=== PATIENT | female | born 1990 | race Caucasian/White ===

== ENCOUNTER 2018-11-15 06:56 | Emergency (ER) | payer SELFPAY ==
[2018-11-15 06:58] VITALS: BP 153/87; PULSE 84; RESP 16; TEMP 36.9; O2SAT 98; BMI 46.0
--- NOTE | 2018-11-15 07:16 | ED.VISSUMM ---
- ER Visit Summary Date of Service: 11/15/18 Chief Complaint: Dental pain History of Present Illness: The patient is a 28 F with several day history of right upper dental pain. She states her wisdom tooth is coming in and her second molar is broken. She has pain throughout the entire right side of her face. She had nausea and dry heaves this morning. She been taking Aleve without improvement. Physical Examination: Vital signs gross unremarkable. Patient sitting upright in bed no acute distress. Head neck examination reveals no facial edema or erythema. Right tympanic membrane is clear. Intraoral examination reveals right second maxillary molar to be broken with mild surrounding gum edema. Posterior pharynx is unremarkable. She is tolerating secretions and has a strong voice. Test Results: [] Emergency Department Course and Treatment: Patient did drive herself to the ER. She will be given Pen-Vee K and Zofran here. She be given prescription for 10 tabs of [place], Zofran, Pen-Vee K. She will continue Aleve. She is given a dental referral list. Treatment Plan: [] Disposition: Discharge Impression: Odontalgia This note was generated with [email or web address] dictation software. It may contain incorrect words, spelling, and punctuation that were not noted in review of the chart prior to signing ED Disposition - Plan for ED Patient: Referrals: Care Physician,No Primary [Primary Care Provider] -
--- NOTE | 2018-11-15 07:18 | ED.DEP ---
ED Disposition - Plan for ED Patient: Disposition: Home or Assisted Living Instructions: ED Tooth Pain Prescriptions: Hydrocodone Bitart/Apap 5-325 [[place] 5MG-325MG] 1 tablet PO Q6H PRN PRN 3 Days #10 tablet PRN Reason: Pain Ondansetron [Zofran Odt] 4 mg PO Q8H PRN PRN #10 tablet PRN Reason: Nausea Penicillin V Potassium 500 mg PO 4X/DAY #40 tablet Additional Instructions: Dental list provided
[2018-11-15] MEDS: Penicillin Vk 250 MG Tablet 500 MG PO (07:38)
[2018-11-15] MEDS: Ondansetron ODT 4 MG Tablet PO (07:38)
== END 2018-11-15 07:45 | disposition home or self-care (01) ==
PROVIDERS: Emergency Provider Emergency Medicine
DX: K08.89 Other specified disorders of teeth and supporting structures (principal); R11.0 Nausea; Z87.891 Personal history of nicotine dependence
CPT/HCPCS: 99283